=== PATIENT | male | born 1975 | race Caucasian/White ===

== ENCOUNTER 2021-09-09 21:45 | Inpatient (IN) | payer BC, OTHER ==
[~2021-09-09] VITALS: Ht 175.3 cm; Wt 81.0 kg
[~2021-09-09 21:45] MED LIST: CLIN-62 PO; DXCC100CRX PO; HYDR-229 PO; HYDR1CAP2 PO; METH500T35 PO; NAPR-243 PO
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
[2021-09-09 22:08] LABS: BASOPHILS % (AUTO) 0 % (0-10); EOSINOPHILS % (AUTO) 0 % (0-10); HEMATOCRIT 46 % (40-54); HEMOGLOBIN 15.5 g/dL (13.3-17.7); LYMPHOCYTES # (AUTO) 2.4 10^3/uL (1.0-4.0); LYMPHOCYTES % (AUTO) 26 % (12-44); MEAN CORPUSCULAR HEMOGLOBIN 30 pg (25-34); MEAN CORPUSCULAR HGB CONC 34 g/dL (32-36); MEAN CORPUSCULAR VOLUME 89 fL (80-99); MEAN PLATELET VOLUME 9.7 fL (9.0-12.2); MONOCYTES # (AUTO) 0.5 10^3/uL (0.0-1.0); MONOCYTES % (AUTO) 6 % (0-12); NEUTROPHILS # (AUTO) 6.1 10^3/uL (1.8-7.8); NEUTROPHILS % (AUTO) 67 % (42-75); PLATELET COUNT 225 10^3/uL (130-400); WHITE BLOOD COUNT 9.1 10^3/uL (4.3-11.0)
[2021-09-09] MEDS ORDERED: ETOMIDATE IV SOLN 20 MG/10 ML VIAL IV ONE (22:15)
[2021-09-09] MEDS ORDERED: NS IV 500 ML 500 ML IV SCH (22:15)
[2021-09-09] MEDS ORDERED: ONDANSETRON 4 MG/2 ML (SDV) Z0FRAN IVP ONE (22:15)
[2021-09-09] MEDS ORDERED: fentaNYL INJ 100 MCG/2 ML AMP IVP PRN (22:15)
[2021-09-09 22:19] LABS: POTASSIUM 3.8 MMOL/L (3.6-5.0)
[2021-09-09 22:21] LABS: CALCIUM 8.5 MG/DL (8.5-10.1)
--- NOTE | 2021-09-09 22:21 | Diagnostic Imaging Report ---
EXAM: Ankle, left, 3 views INDICATION: Left ankle pain. Fall on ice. COMPARISON: None. FINDINGS: Comminuted fractures of the distal left fibular metaphysis and medial malleolus. There is posterior dislocation of the talus. No radiopaque foreign bodies. IMPRESSION: Fracture and dislocation of the left ankle, as above. Dictated by: Dictated on workstation # [id number]
[2021-09-09 22:23] LABS: BILIRUBIN,TOTAL 0.6 MG/DL (0.1-1.0)
[2021-09-09 22:26] LABS: CREATININE SERUM 0.74 MG/DL (0.60-1.30); INR 0.9 (0.8-1.4); PROTHROMBIN TIME PATIENT 12.6 SEC (12.2-14.7)
--- NOTE | 2021-09-09 22:42 | Diagnostic Imaging Report ---
EXAM: Ankle, left, 2 views. INDICATION: Left ankle fracture. COMPARISON: Left ankle radiographs from earlier today. FINDINGS/ IMPRESSION: Interval reduction of the left talus dislocation. Comminuted fractures of the distal left fibular metaphysis and medial malleolus. Images acquired through splinting material. Dictated by: Dictated on workstation # [id number]
[2021-09-09 23:00] VITALS: BP 138/87
[2021-09-09] MEDS ORDERED: LACTATED RINGERS 1,000 ML IV ONE (23:00)
[2021-09-09] MEDS ORDERED: ACETAMINOPHEN 325 MG TABLET PO PRN (23:15)
[2021-09-09 23:23] LABS: AMPHETAMINE SCREEN, URINE NEGATIVE (NEGATIVE); BARBITURATE SCREEN URINE NEGATIVE (NEGATIVE); BENZODIAZEPINES SCREEN URINE NEGATIVE (NEGATIVE); CANNABINOID SCREEN, URINE NEGATIVE (NEGATIVE); COCAINE SCREEN URINE NEGATIVE (NEGATIVE); METHADONE STAT NEGATIVE (NEGATIVE); METHAMPHETAMINE SCREEN URINE S NEGATIVE (NEGATIVE); OPIATE SCREEN URINE NEGATIVE (NEGATIVE); OXYCODONE STAT NEGATIVE (NEGATIVE); PROPOXYPHENE STAT NEGATIVE (NEGATIVE); TRICYCLIC ANTIDEPRESSANTS SCRE NEGATIVE (NEGATIVE)
[2021-09-10] VITALS (11 sets, daily range): BP systolic 109–135; BP diastolic 66–99
[2021-09-10] MEDS ORDERED: 1/2 NS IV SOLUTION 1,000 ML IV PRN (01:15)
[2021-09-10] MEDS ORDERED: LORazepam 1 MG (ATIVAN) TAB PO PRN (01:15)
[2021-09-10] MEDS ORDERED: ONDANSETRON 4 MG/2 ML (SDV) Z0FRAN IV PRN (01:15)
[2021-09-10] MEDS ORDERED: LORazepam INJ 2 MG/ML (ATIVAN) VIAL IM/IV PRN (01:15)
[2021-09-10] MEDS ORDERED: ONDANSETRON 4 MG (ZOFRAN) ORAL DISSOLVE TAB SL PRN (01:15)
[2021-09-10] MEDS ORDERED: SENNA W/DOCUSATE (SENOKOT S) TABLET PO PRN (01:15)
[2021-09-10] MEDS ORDERED: D5 1/2 NS 1000 ML IV SOLUTION 1,000 ML IV PRN (01:15)
[2021-09-10] MEDS ORDERED: ANTACID SUSP 30 ML UDC (MYLANTA) PO PRN (01:15)
[2021-09-10] MEDS: fentaNYL INJ 100 MCG/2 ML AMP IV PRN ×6 (02:14→23:46)
[2021-09-10] MEDS: LACTATED RINGERS 1,000 ML IV SCH ×4 (02:15→20:45)
[2021-09-10] MEDS: LORazepam INJ 2 MG/ML (ATIVAN) VIAL IV PRN ×3 (03:16→23:46)
[2021-09-10 06:02] LABS: HEMATOCRIT 44 % (40-54); HEMOGLOBIN 15.1 g/dL (13.3-17.7); MEAN CORPUSCULAR HEMOGLOBIN 31 pg (25-34); MEAN CORPUSCULAR HGB CONC 34 g/dL (32-36); MEAN CORPUSCULAR VOLUME 90 fL (80-99); MEAN PLATELET VOLUME 9.8 fL (9.0-12.2); PLATELET COUNT 227 10^3/uL (130-400); WHITE BLOOD COUNT 9.6 10^3/uL (4.3-11.0)
[2021-09-10 06:18] LABS: POTASSIUM 4.1 MMOL/L (3.6-5.0)
[2021-09-10 06:19] LABS: CALCIUM 8.2 MG/DL (8.5-10.1)
[2021-09-10 06:24] LABS: CREATININE SERUM 0.72 MG/DL (0.60-1.30)
[2021-09-10] MEDS ORDERED: SEVOFLURANE (ULTANE) 15 ML INHAL SOLN ONE ×2 (08:45→10:50)
[2021-09-10] MEDS ORDERED: ONDANSETRON 4 MG/2 ML (SDV) Z0FRAN ONE (08:45)
[2021-09-10] MEDS ORDERED: proPOfol 200 MG/20 ML (DIPRIVAN) VIAL IV ONE (08:45)
[2021-09-10] MEDS ORDERED: LIDOCAINE PF 2% 5 ML (XYLOCAINE) VIAL ONE (08:45)
[2021-09-10] MEDS ORDERED: MIDAZOLAM 2 MG/2 ML (VERSED) VIAL ONE (08:45)
[2021-09-10] MEDS ORDERED: fentaNYL INJ 100 MCG/2 ML AMP ONE (08:45)
[2021-09-10] MEDS ORDERED: NEO/POLY/BAC (NEOSPORIN) OINT 15 GM TUBE ONE (08:54)
[2021-09-10] MEDS ORDERED: LIDOCAINE/EPI 1%-1:200,000 (XYLOCAINE) 30 ML VIAL ONE (08:54)
[2021-09-10] MEDS ORDERED: BUPIVACAINE 0.25% 30 ML (SENSORCAINE) VIAL ONE (08:54)
[2021-09-10] MEDS: LACTATED RINGERS 1,000 ML IV PRN ×2 (09:00→09:53)
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
[2021-09-10] MEDS ORDERED: METOCLOPRAMIDE INJ 10 MG/2 ML (REGLAN) ONE (09:19)
[2021-09-10] MEDS ORDERED: PHENYLEPHRINE 100 MCG/ML 10 ML (ANESTHESIA) SYR ONE (09:23)
[2021-09-10] MEDS ORDERED: ceFAZolin INJECTION 2,000 MG ONE (09:44)
[2021-09-10] MEDS ORDERED: ROCURONIUM 10 MG/ML 5 ML SYRINGE IV ONE (10:38)
[2021-09-10] MEDS ORDERED: KETOROLAC 30 MG/ML VIAL ONE (10:54)
[2021-09-10] MEDS ORDERED: ONDANSETRON 4 MG/2 ML (SDV) Z0FRAN IVP PRN (11:30)
[2021-09-10] MEDS ORDERED: MEPERIDINE (DEMEROL) INJ 50 MG/ML IVP ONE (11:30)
[2021-09-10] MEDS ORDERED: HYDROmorphone 2 MG/ML VIAL (DILAUDID) IV ONE (11:30)
[2021-09-10] MEDS ORDERED: SUCCINYLCHOLINE INJ 20 MG/1 ML 10 ML VIAL ONE (11:33)
--- NOTE | 2021-09-10 11:40 | Operative Report - Ortho ---
Operative Report Surgeon (s)/Electronic Assembly (s) Surgeon MELODIE VIGIL MD Electronic Assembly n/a Pre-Operative Diagnosis Trimalleolar fracture left ankle with syndesmosis disruption Post-Operative Diagnosis same Operative Report Date of Procedure: Sep 10, 2021 Name of Procedure Performed: Open reduction internal fixation of trimalleolar fracture left ankle with syndesmosis stabilization Description & Findings The patient was seen in the hospital room and treatment options were discussed. I recommended open reduction internal fixation of his left ankle fracture. After discussing the procedure risk complications, the patient would like to proceed. Patient was brought down to the operating room in his hospital bed. He is placed on the OR table and after administration of general anesthesia a tourniquet was placed on the left thigh and the splint was removed from the left lower leg and ankle. He did have some moderate swelling and bruising but no skin wounds or blistering. He had a good posterior tibial and Dorsalis pedis pulse. His toes were pink and had good capillary refill. The foot and lower leg were then scrubbed prepped and draped in usual sterile manner. The leg was examined with an Esmarch and the tourniquet was elevated to 250 mmHg. An incision was made laterally from the tip of the distal fibula proximally approximately 15 cm. This was taken down through subtenons tissue. Bleeders are cauterized. The soft tissue was elevated off of the distal fibula. The fracture was comminuted and was a sharp oblique fracture. The posterior wall at the fracture site was comminuted. The wound was irrigated as well as the fracture hematoma. The fracture was then able to be reduced and held with a reduction clamp. There is really no cortex posteriorly to place a lag screw. A distal fibular locking plate was then selected 3 holes in the shaft and this was placed on the lateral aspect of the fibula holding the fracture reduced. 2 locking screws were placed distally in the distal fragment and 2 cortical screws were placed in the most proximal shaft screw holes. Images then used to vis ualize the fracture reduction and excellent alignment of the reduction was noted in excellent position of the plate and screws are noted. At this point 4 additional locking screws were placed in the distal fragment and 1 more cortical screw in the shaft. The reduction clamp was removed and the fracture was found to be stable and again the fibula was out the length with posterior comminution at the fracture site. At this point an incision was made medially over the fracture of the medial malleolus. This was taken down through subtenons tissue. Soft tissue was elevated off the fracture site. The fracture hematoma was irrigated. No comminuted or loose fragments were noted. The fracture was reduced without difficulty and held with a reduction clamp. Guide pins were placed through the tip of the medial malleolus across fracture site into the distal tibia. These were then overdrilled. 2-40 mm partially-threaded 4.0 cannulated screws were then inserted over the guide pins holding the fracture in good reduction and good position. Images then used to visualize the ankle and fractures were reduced anatomic. Screws were in good position medially and again the plate and screws were in good position laterally. At this point to syndesmosis screws were placed from lateral to medially through the slot in the midportion of the plate. These were drilled measured and appropriate length screws were inserted with holding the syndesmosis reduced aiming slightly anterior. The syndesmosis was then checked and found to be stable. The ankle was stable. The posterior malleolar fragment which was approximately 2 mm in width was minimally displaced and was at the back edge of the articular surface. It was felt that this was in good position and did not need to be opened and fixed. This point the tourniquet was deflated after 56 minutes. Bleeders are cauterized. Wounds were irrigated. Lateral wou nd was closed in layers of 2-0 and 0 Vicryl and then lizbeth for the skin. 2 oh and lizbeth medially. Wounds were injected with 30 mL of a 50-50 mixture of 0.5% Marcaine and 1% Xylocaine. The wounds are dressed with antibiotic ointment Adaptic and 4 x 4's and wrapped with web roll. A posterior and sugar tong splint was applied to the ankle. These were wrapped with Jamal wraps. Patient was then transferred to recovery room in good condition, he tolerated procedure well. [id number] minutes at 250 mmHg Blood [id number] mL Drainsnone Complicationsnone Specimensnone n/a Anesthesia Type General Estimated Blood Loss 100 mL Packing none. Specimen(s) collected/removed None MELODIE VIGIL MD Sep 10, 2021 11:40
[2021-09-10] MEDS ORDERED: oxyCODONE/APAP 5/325MG (PERCOCET 5) TABLET PO PRN (11:45)
--- NOTE | 2021-09-10 11:45 | Diagnostic Imaging Report ---
Result: History: 46 years-old Male with left ankle fracture Technique: 4 intraoperative fluoroscopic images of the left ankle in the frontal, oblique and lateral projections. Fluoroscopic Time: 38.3 seconds Findings: Intraoperative fluoroscopic images were obtained during internal fixation of the distal fibula fracture in the medial malleolus fracture with trans-syndesmotic screws as well. Alignment is improved. Impression: Fluoroscopic intraoperative images obtained during internal fixation of the medial and lateral malleoli fractures with improved alignment. Dictated by: Dictated on workstation # [id number]
--- NOTE | 2021-09-10 11:48 | Anesthesia-General Post-Op ---
General Patient Condition Mental Status/LOC: Same as Preop Cardiovascular: Satisfactory Nausea/Vomiting: Absent Respiratory: Satisfactory Pain: Controlled Complications: Absent Post Op Complications Complications None Follow Up Care/Instructions Patient Instructions None needed. Anesthesia/Patient Condition Patient Condition Patient is doing well, no complaints, stable vital signs, no apparent adverse anesthesia problems. No complications reported per nursing. D/C home per [facility] [place] [facility] [place] Criteria: RUDY Moreno CRNA Sep 10, 2021 11:48
[2021-09-10] MEDS: ceFAZolin 2 GM IV Premixed 50 ML IV SCH (17:58)
--- NOTE | 2021-09-10 18:17 | History & Physical-Hospitalist ---
History of Present Illness HPI/Chief Complaint George Best is a 46 year old male with no past medical history who presented with ankle pain. 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 He had drank several beers last night. He underwent surgical repair today with orthopedic surgery. Upon my exam, he is resting comfortably in bed. He is not in pain at this time. He denies shortness of breath. He was able to eat without any abdominal pain, nausea, or vomiting. He has been in his normal state of health recently. He does not smoke cigarettes. He reports drinking 6-12 beers daily. He has no history of alcohol withdrawal. He does not use any illicit drugs. Source: patient Exam Limitations: no limitations Date Seen 09/10/21 Time Seen by a Provider: 17:40 Attending Physician Lavinia Bernard MD PCP No,Local Physician Referring Physician Date of Admission Sep 09, 2021 at 22:08 Home Medications & Allergies Home Medications Reviewed patient Home Medication Reconciliation performed by pharmacy medication reconciliations certified technician and/or nursing. Patients Allergies have been reviewed. Allergies Allergies Coded Allergies adhesive (Verified Allergy, Severe, RASH, OOZING, IMPENTIGO, 02/04/13) ADHESIVE SKIN GLUE sulfamethoxazole (Verified Allergy, Mild, HIVES, 01/02/13) trimethoprim (Verified Allergy, Mild, HIVES, 01/02/13) Uncoded Allergies mastisol ( Adverse Reaction, Intermediate, swelling, rash, 02/06/13) Past Rjnzwkl-Xpyisf-Ddnpoq Hx Patient Social History Tobacco Use?: Yes Smoking Status: Former Smoker Smokeless type used: Chew Smokeless Tobacco Frequency: Current Everyday User Use of E-Cig and/or Vaping dev: No Substance use?: No Alcohol Use?: Yes Alcohol type: Beer Alcohol Frequency: Daily Pt feels they are or have been: Yes Immunizations Up To Date First/Initial COVID19 Vaccinat: NONE Second COVID19 Vaccination Jeanmarie: NONE Seasonal Allergies Seasonal Allergies: No Current Status Advance Directives: No Communicates: Verbally Primary Language: Syriac Preferred Spoken Language: Syriac Is interpretation needed?: No Past Medical History Chronic Back Pain, Fractures Adverse Reaction/Blood Tranf: No Family Medical History No Pertinent Family Hx Review of Systems Constitutional: no symptoms reported EENTM: no symptoms reported Respiratory: no symptoms reported Cardiovascular: no symptoms reported Gastrointestinal: no symptoms reported Genitourinary: no symptoms reported Musculoskeletal: no symptoms reported Skin: no symptoms reported Psychiatric/Neurological: No Symptoms Reported Physical Exam Physical Exam Vital Signs Vital Signs - First Documented 09/09/21 21:47 Temp 36.3 Pulse 100 Resp 22 B/P (MAP) 157/98 (117) Pulse Ox 93 O2 Delivery Room Air Capillary Refill : Less Than 3 SecondsLess Than 3 Seconds Height, Weight, BMI Height: '" Weight: lbs. oz. kg; 26.35 BMI Method:Stated General Appearance: No Apparent Distress, WD/WN HEENT: PERRL/EOMI, Pharynx Normal Neck: Normal Inspection, Supple Respiratory: Lungs Clear, Normal Breath Sounds, No Respiratory Distress Cardiovascular: Regular Rate, Rhythm, No Edema, No Murmur Gastrointestinal: Normal Bowel Sounds, Non Tender, Soft Extremity: No Pedal Edema, Other (left ankle wrapped with bandages and elevated) Neurologic/Psychiatric: Alert, Oriented x3, No Motor/Sensory Deficits Skin: Normal Color, Warm/Dry Results Results/Procedures Labs Laboratory Tests 09/09/21 21:55 09/10/21 05:50 Patient resulted labs reviewed. Imaging: Reviewed Imaging Report Assessment/Plan Admission Diagnosis Trimalleolar fracture of left ankle Admission Status: Inpatient Order (span 2 midnights) Reason for Inpatient Admission: Surgical repair Assessment and Plan Trimalleolar fracture of left ankle Ortho consulted s/p ORIF 09/10 Pain regimen Bowel regimen Non-weight bearing LLE PT/OT Incentive spriometry Alcohol dependence with acute intoxication No history of withdrawal No evidence of withdrawal at this time [facility] protocol Diagnosis/Problems Diagnosis/Problems (1) Trimalleolar fracture of left ankle Status: Acute Qualifiers: Encounter type: initial encounter Fracture type: closed Qualified Codes: S82.852A - Displaced trimalleolar fracture of left lower leg, initial encounter for closed fracture (2) Alcohol dependence with intoxication Status: Acute Qualifiers: Complication of substance-induced condition: uncomplicated Qualified Codes: F10.220 - Alcohol dependence with intoxication, uncomplicated LAVINIA BERNARD MD Sep 10, 2021 18:17
[2021-09-10] MEDS ORDERED: ENOXAPARIN 40 MG/0.4 ML (LOVENOX) SYR SC SCH (18:30)
[2021-09-10] MEDS ORDERED: ENOXAPARIN 40 MG/0.4 ML (LOVENOX) SYR ONE (19:26)
[2021-09-11] VITALS: BP 104/70
[2021-09-11] MEDS: ceFAZolin 2 GM IV Premixed 50 ML IV SCH ×2 (01:11→08:36)
[2021-09-11 04:00] VITALS: BP 128/71
[2021-09-11] MEDS: fentaNYL INJ 100 MCG/2 ML AMP IV PRN ×3 (04:12→11:00)
[2021-09-11] MEDS: oxyCODONE/APAP 10/325MG (PERCOCET 10) TABLET PO PRN ×3 (04:16→12:44)
[2021-09-11] MEDS: LACTATED RINGERS 1,000 ML IV SCH (06:12)
[2021-09-11 06:58] LABS: CALCIUM 8.4 MG/DL (8.5-10.1)
[2021-09-11 07:02] LABS: CREATININE SERUM 0.71 MG/DL (0.60-1.30)
[2021-09-11 08:04] VITALS: BP 129/81
[2021-09-11] MEDS ORDERED: ASPIRIN E.C. 325 MG (ECOTRIN) TABLET PO SCH (09:00)
--- NOTE | 2021-09-11 09:19 | Progress Note - Ortho ---
Progress Note Subjective Date of Exam 09/11/21 Chief Complaint POD#1 Open reduction internal fixation trimalleolar fracture left ankle with syndesmosis stabilization. HPI/Events since last exam George is 1 day postop open reduction internal fixation left ankle fracture. He stated he had quite a bit of pain last evening and had difficulty sleeping. He is better this morning as he had a pain pill as well as IV pain medication. He has not yet been up with therapy. Review of Systems Reviewed and no additions or changes Allergies: Coded Allergies: adhesive (Verified Allergy, Severe, RASH, OOZING, IMPENTIGO, 02/04/13) ADHESIVE SKIN GLUE sulfamethoxazole (Verified Allergy, Mild, HIVES, 01/02/13) trimethoprim (Verified Allergy, Mild, HIVES, 01/02/13) Uncoded Allergies: mastisol (Adverse Reaction, Intermediate, swelling, rash, 02/06/13) Home Meds Discontinued Reported Medications Naproxen (Naprosyn) 500 Mg Tablet, 1 EACH PO BID 02/04/13 Doxycycline Hyclate (RX-VIBRAMYCIN TABLET) 100 Mg Tab, 100 MG PO BID 02/04/13 Hydrocodone Bit/Acetaminophen (Hydrocodone-Apap 5-500 Cap) 1 Each Capsule, 1 EACH PO Q4HR PRN 01/02/13 Methocarbamol (Robaxin) 500 Mg Tablet, 500 MG PO TID 01/02/13 Discontinued Scripts Clindamycin Hcl (Cleocin Cap) 150 Mg Cap, 3 EACH PO Q8H for 7 Days, CAP 0 Refills Prov:RAULITO FALL MD 02/04/13 Objective Exam Constitutional: [] HEENT: [] Neck: [] Cardiovascular: [] Respiratory: [] Gastrointestinal: [] Genitourinary: [] Skin: [] Back/Spine: [] Extremities: [He can move his toes without pain. He has good cap refill. Normal sensation in all of his toes. No knee pain and minimal hip pain.He states he has had pain like this in his hip off and on and she usually positional] Neurologic: [] Psychiatric: [] Hematologic/lymphatic/immunologic: [] Vital Signs Vital Signs Date Time Temp Pulse Resp B/P (MAP) Pulse Ox O2 Delivery O2 Flow Rate FiO2 09/11/21 08:04 37.0 82 20 129/81 (97) 95 Room Air 09/11/21 07:00 95 09/11/21 04:00 36.2 90 18 128/71 (90) 97 Room Air 09/11/21 01:00 89 09/11/21 00:00 36.8 112 20 104/70 (81) 96 Room Air 09/10/21 20:35 Room Air 09/10/21 19:31 37.1 124 22 119/82 (94) 91 Room Air 09/10/21 19:00 128 09/10/21 15:30 37.1 125 20 125/66 (85) 93 Room Air 09/10/21 14:53 Room Air 0.00 09/10/21 12:20 36.2 18 114/85 (95) 95 OxyMask 4 09/10/21 12:20 OxyMask 4 09/10/21 12:20 37.0 104 16 122/78 (93) 94 OxyMask 4.00 09/10/21 12:10 18 109/88 (95) 93 OxyMask 4 09/10/21 12:10 OxyMask 4 09/10/21 12:04 OxyMask 4 09/10/21 12:00 18 110/89 (96) 93 OxyMask 4 09/10/21 11:59 OxyMask 4 09/10/21 11:54 OxyMask 2 09/10/21 11:50 18 123/83 (96) 97 OxyMask 3 09/10/21 11:46 OxyMask 3 09/10/21 11:43 OxyMask 6 09/10/21 11:40 18 135/99 (111) 98 OxyMask 6 09/10/21 11:30 18 123/86 (98) 97 OxyMask 6 09/10/21 11:30 OxyMask 6 09/10/21 11:19 36.4 12 114/97 (103) 99 OxyMask 6 09/10/21 11:19 OxyMask 6 I & O 09/11/21 07:00 Intake Total 3580 ml Output Total 1875 ml Balance 1705 ml Lab Results Laboratory Tests 09/11/21 06:15: Hemoglobin 13.0L, Hematocrit 39L, Sodium Level 136, Potassium Level 4.0, Chloride Level 100, Carbon Dioxide Level 27, Anion Gap 9, Blood Urea Nitrogen 8, Creatinine 0.71, Estimat Glomerular Filtration Rate 113, BUN/Creatinine Ratio 11, Glucose Level 129H, Calcium Level 8.4L Microbiology 09/09/21 MRSA Screen - Final, Complete MRSA not isolated Assessment and Plan Assessment Doing well first day postop other than some difficulty with pain control Problem List Unchanged Plan We will see how he does getting up with therapy crutch ambulation nonweightbearing on the left. We talked about pain management and he needs to stay ahead of the pain. He states he tried to go as long as he could without taking anything. So he will take oral pain medication around the clock and use IV pain medication for breakthrough pain. If he is doing well later on today he certainly can go home and then I will see him back in the office on Sunday. If he continues with some difficulty controlling his pain and getting up and ambulating then will plan on having him stay till tomorrow. Final Diagonsis Trimalleolar fracture left ankle with syndesmosis disruption Level of the visit: Level 3 MELODIE VIGIL MD Sep 11, 2021 09:19
[2021-09-11] MEDS ORDERED: OXYC1TAB12 PO ×2 (10:53)
--- NOTE | 2021-09-11 10:58 | Physical Therapy Ortho Eval ---
PT Orthopedic Evaluation Type of Surgery left ankle fracture/ s/p left ankle ORIF Prior Level of Function Current Living Status: Spouse Locomotion (Upon Admit): Independent Subjective Subjective Patient agrees to PT. Reports he is "shaky". Family present. Entry Into Home: Stairs With Railing Steps Into Home: 2 Other Obstacles: Patient performed 2 steps with CGA Motor Control Motor Control: Motor Control WNL ROM ROM: WFL, except focal deficit Strength Strength: WFL Transfer SCALE: Activities may be completed with or without assistive devices. 6-Axhlhfknxx-eehfvkz completes the activity by him/herself with no assistance from a helper. 5-Set-up or Clean-up Assistance-helper sets up or cleans up; patient completes activity. [place] assists only prior to or following the activity. 4-Supervision or Touching Assistance-helper provides verbal cues and/or touching/steadying and/or contact guard assistance as patient completes activity. Assistance may be provided throughout the activity or intermittently. 3-Partial/Moderate Assistance-helper does LESS THAN HALF the effort. [place] lifts, holds or supports trunk or limbs, but provides less than half the effort. 2-Substantial/Maximal Assistance-helper does MORE THAN HALF the effort. [place] lifts or holds trunk or limbs and provides more than half the effort. 9-Jiwhvpavc-wwncse does ALL the effort. Patient does none of the effort to complete the activity. Or, the assistance of 2 or more helpers is required for the patient to complete the activity. If activity was not attempted, code reason: 7-Patient Refused. 9-Not Applicable-not attempted and the patient did not perform the activity before the current illness, exacerbation or injury. 10-Not Attempted due to Environmental Limitations-(lack of equipment, weather restraints, etc.). 88-Not Attempted due to Medical Conditions or Safety Concerns. Transfers (B, C, W/C) (QC): 4 (CGA) Gait Gait Assistive Device: Crutches Right Lower Extremity: Right Weight Bearing Status RLE: Full Weight Bearing Left Lower Extremity: Left Weight Bearing Status LLE: Non Weight Bearing Gait (QC): 4 (CGA) Distance (QC): 3=150 ft Distance: 150' x 1/50' x 1 Gait Level of Assist: 4 Treatment Rendered Treatment: Gait Train, Step Train, Reviewed Precautions, Caregiver Instruction PT to send gait belt home for patient safety with family training on use performed. Assessment/Goals Goal Time Frame: 1 Visit Safe Ambulation: Yes Plan Treatment Plan: Discharge PT/Family Agrees to Plan: Yes Time Time In: 1033 Time Out: 1053 Total Billed Treatment Time: 20 Billed Treatment Time 1 [facility] 20 min LION MONTOYA PT Sep 11, 2021 10:58
[2021-09-11 11:32] VITALS: BP 134/83
[2021-09-11] MEDS ORDERED: ASPI325T32 PO ×2 (12:59)
--- NOTE | 2021-09-11 14:08 | Discharge Summary ---
Discharge Summary Hospital Course Problems/Dx: (1) Trimalleolar fracture of left ankle Status: Acute Qualifiers: Qualified Codes: S82.852A - Displaced trimalleolar fracture of left lower leg, initial encounter for closed fracture (2) Alcohol dependence with intoxication Status: Acute Qualifiers: Qualified Codes: F10.220 - Alcohol dependence with intoxication, uncomplicated Hospital Course Date of Admission: Sep 09, 2021 at 22:08 Admission Diagnosis : Trimalleolar fracture of left ankle Family Physician/Provider: Tracey,Local Physician Date of Discharge: 09/11/21 Discharge Diagnosis: Trimalleolar fracture of left ankle Hospital Course: George Best is a 46 year old male who presented after twisting his ankle and was admitted with trimalleolar fracture of his left ankle. Orthopedic surgery was consulted and performed open reduction internal fixation of trimalleolar fracture with syndesmosis stabilization. His course was complicated by acute alcohol intoxication and alcohol dependence. He was monitored but had no significnat alcohol withdrawal symptoms. He was given an order for crutches. He was given a work note. He was given prescriptions for aspirin and Percocet. He should follow up with Dr. Pitts on Sunday. He was discharged home in stable condition. Labs and Pending Lab Test: Laboratory Tests 09/11/21 06:15: Hemoglobin 13.0L, Hematocrit 39L, Sodium Level 136, Potassium Level 4.0, Chloride Level 100, Carbon Dioxide Level 27, Anion Gap 9, Blood Urea Nitrogen 8, Creatinine 0.71, Estimat Glomerular Filtration Rate 113, BUN/Creatinine Ratio 11, Glucose Level 129H, Calcium Level 8.4L Microbiology 09/09/21 MRSA Screen - Final, Complete MRSA not isolated Home Meds Active Aspirin EC (Aspirin) 325 Mg Tablet. 325 Mg PO DAILY daily for 6 weeks Percocet 10-325 mg Tablet (Oxycodone HCl/Acetaminophen) 1 Each Tablet 1 Tab PO Q4H PRN 7 Days Assessment/Pt Instructions Take medications as prescribed. Follow up with your PCP. Return wirh worsening pain or if you feel like you are getting worse. Discharge Planning: <30 minutes discharge planning Discharge Instructions Discharge Diet: No Restrictions Consultations Orthopedic surgery Discharge Physical Examination Vital Signs Vital Signs Date Time Temp Pulse Resp B/P (MAP) Pulse Ox O2 Delivery O2 Flow Rate FiO2 09/11/21 11:32 36.7 91 18 134/83 (100) 93 Room Air 09/10/21 14:53 0.00 General Appearance: No Apparent Distress, WD/WN Respiratory: Lungs Clear, No Respiratory Distress Cardiovascular: Regular Rate, Rhythm, No Murmur Gastrointestinal: Normal Bowel Sounds, Soft Extremity: No Pedal Edema, Other (left ankle bandage in place) Neurologic/Psychiatric: Alert, No Motor/Sensory Deficits Allergies: Coded Allergies: adhesive (Verified Allergy, Severe, RASH, OOZING, IMPENTIGO, 02/04/13) ADHESIVE SKIN GLUE sulfamethoxazole (Verified Allergy, Mild, HIVES, 01/02/13) trimethoprim (Verified Allergy, Mild, HIVES, 01/02/13) Uncoded Allergies: mastisol (Adverse Reaction, Intermediate, swelling, rash, 02/06/13) Discharge Summary Date of Admission Sep 09, 2021 at 22:08 Date of Discharge Sep 11, 2021 at 13:15 Discharge Date: Sep 11, 2021 Discharge Time: 13:15 Admission Diagnosis Trimalleolar fracture of left ankle Consults/Procedures Consulations Orthopedic surgery Procedures ORIF Discharge Diagnosis Trimalleolar fracture of left ankle Alcohol dependence with acute intoxication (1) Trimalleolar fracture of left ankle Status: Acute Qualifiers: Qualified Codes: S82.852A - Displaced trimalleolar fracture of left lower leg, initial encounter for closed fracture (2) Alcohol dependence with intoxication Status: Acute Qualifiers: Qualified Codes: F10.220 - Alcohol dependence with intoxication, uncomplicated CORIE BERNARD MD Sep 11, 2021 14:06
--- NOTE | 2021-09-12 15:16 | Physician Query Clarification ---
PQ-Intro New Diagnosis Admission/Discharge Admission Date: Sep 09, 2021 at 22:08 Discharge Date: Sep 11, 2021 at 13:15 Dr. Bernard, The medical record reflects the following clinical scenario: History/Risk Factors: Lt trimalleolar fx, alcoholism w/intoxication Clinical Findings: Sodium 130 Treatment: IV Sodium chloride Question: What condition best reflects the above clinical scenario? Please document a response in the Progress Noter or Discharge Summary. 1. Hyponatremia 2. Hyponatremia not clinically significant 3. Other, with explanation of the clinical findings. 4. Clinically undetermined, no explanation for the clinical findings. PHYSICIAN RESPONSE What condition reflects above: 1 Please remember a lack of response to the above will prompt a phone page by [facility] staff. In responding to this query, please exercise your independent professional judgment. The purpose of this communication is to more accurately reflect the complexity of your patients condition. The fact that a question is asked does not imply that any particular answer is desired or expected. Thank you for your timely response to this clarification. Requestors name: Tavia THIS PHYSICIAN QUERY FORM IS A PERMANENT PART OF THE MEDICAL RECORD TAVIA FRY Sep 12, 2021 15:16 CORIE BERNARD MD Sep 14, 2021 11:34
== END 2021-09-11 13:15 | disposition home or self-care (01) | DRG 493 ==
LOC: EDUNIT# 21:45 → ER 21:47 → 4TH 22:08
PROVIDERS: ADMIT Internal Medicine; ATTEND Internal Medicine
PROC: 0QSH04Z Reposition Left Tibia with Internal Fixation Device, Open Approach (ICD-10-PCS; 2021-09-10)
PROC: 0QSK04Z Reposition Left Fibula with Internal Fixation Device, Open Approach (ICD-10-PCS; 2021-09-10)
PROC: 0SSG04Z Reposition Left Ankle Joint with Internal Fixation Device, Open Approach (ICD-10-PCS; principal; 2021-09-10 09:09)
DX: S82.852A Displaced trimalleolar fracture of left lower leg, initial encounter for closed fracture (principal); E87.1 Hypo-osmolality and hyponatremia; F10.229 Alcohol dependence with intoxication, unspecified; Y90.8 Blood alcohol level of 240 mg/100 ml or more; Z88.1 Allergy status to other antibiotic agents; Z88.2 Allergy status to sulfonamides; Z91.048 Other nonmedicinal substance allergy status; Z87.891 Personal history of nicotine dependence; W01.0XXA Fall on same level from slipping, tripping and stumbling without subsequent striking against object, initial encounter
CPT/HCPCS: 29515; 36415; 73600; 73610; 76000; 80048; 80053; 80306; 80320; 85014; 85018; 85025; 85027; 85610; 85730; 87081; 93041; 94664; 96361; 96374; 96375; G0378

== ENCOUNTER → 2021-09-14 | Outpatient (CLI) | payer BC ==
[~2021-09-14] MED LIST changes: +ASPI325T32 PO; +OXYC1TAB12 PO
== END ==
LOC: ORTHO 10:30
PROVIDERS: ATTEND Orthopaedic Surgery
DX: S82.852A Displaced trimalleolar fracture of left lower leg, initial encounter for closed fracture (principal); X58.XXXA Exposure to other specified factors, initial encounter
CPT/HCPCS: 29405

== ENCOUNTER → 2021-09-26 | Outpatient (CLI) | payer BC ==
--- NOTE | 2021-09-26 11:39 | Diagnostic Imaging Report ---
EXAMINATION: Left ankle radiographs, 3 views. COMPARISON: Left ankle radiographs September 09, 2021. HISTORY: 46-year-old male, history of left ankle fracture. Followup status post surgery. FINDINGS: There is sideplate and screw fixation hardware along the distal fibula including syndesmotic screws. The hardware appears intact. There is no abnormal lucency surrounding the fixation screws. There is a comminuted fracture of the distal fibular diaphysis centered above the level of the tibial plafond. There are persistent visible fracture lines. There are two lag screws present in the medial malleolus. There is an oblique essentially nondisplaced fracture of the base of the medial malleolus. There is a mildly displaced fracture of the posterior malleolus with persistent visible fracture line. Overall fracture alignment is substantially improved since September 09, 2021. The alignment of the ankle mortise is grossly unremarkable. IMPRESSION: 1. Intact sideplate and screw fixation hardware at the level of the distal fibula including syndesmotic screws as well as intact medial malleolar fixation screws. No identified hardware complication. 2. Substantial interval improved alignment of the previously noted fractures of the distal fibula, medial malleolus, and posterior malleolus. Dictated by: Dictated on workstation # [id number]
== END ==
LOC: ORTHO 09:40
PROVIDERS: ATTEND Orthopaedic Surgery
DX: S82.852D Displaced trimalleolar fracture of left lower leg, subsequent encounter for closed fracture with routine healing (principal); X58.XXXD Exposure to other specified factors, subsequent encounter
CPT/HCPCS: 73610

== ENCOUNTER → 2021-10-10 | Outpatient (CLI) | payer BC ==
--- NOTE | 2021-10-10 09:40 | Diagnostic Imaging Report ---
INDICATION: Left ankle fracture, follow-up. TIME OF EXAM: 9:17 AM Correlation is made with prior radiograph from 09/26/2021. FINDINGS: 3 views left ankle demonstrate lateral plate and numerous screws transfixing the obliquely oriented distal fibular fracture. Fracture line remains visible but alignment is anatomic. There are 2 partially threaded screws transfixing the medial malleolus. There are 2 fully threaded syndesmotic screws. Transversely oriented medial malleolar fracture remains visible. Alignment is anatomic. Ankle mortise is well maintained. Talar dome is smooth. IMPRESSION: Stable postop and post traumatic changes left ankle when compared with exam from 2 weeks earlier. The fracture lines of the distal fibula and medial malleolus remain visible but alignment is anatomic. Dictated by: Dictated on workstation # [id number]
== END ==
LOC: ORTHO 09:13
PROVIDERS: ATTEND Orthopaedic Surgery
DX: S82.852D Displaced trimalleolar fracture of left lower leg, subsequent encounter for closed fracture with routine healing (principal); X58.XXXD Exposure to other specified factors, subsequent encounter
CPT/HCPCS: 73610

== ENCOUNTER → 2021-10-12 | Outpatient (CLI) | payer BC | LOC: ORTHO 13:13 | PROVIDERS: ATTEND Orthopaedic Surgery | DX: S82.852D Displaced trimalleolar fracture of left lower leg, subsequent encounter for closed fracture with routine healing (principal); X58.XXXD Exposure to other specified factors, subsequent encounter ==

== ENCOUNTER → 2021-10-12 | Outpatient (CLI) | payer BC ==
[2021-10-12 12:47] LABS: BASOPHILS # (AUTO) 0.1 10^3/uL (0.0-0.1); BASOPHILS % (AUTO) 1 % (0-10); EOSINOPHILS # (AUTO) 0.1 10^3/uL (0.0-0.3); EOSINOPHILS % (AUTO) 2 % (0-10); HEMATOCRIT 48 % (40-54); HEMOGLOBIN 15.7 g/dL (13.3-17.7); LYMPHOCYTES # (AUTO) 1.5 10^3/uL (1.0-4.0); LYMPHOCYTES % (AUTO) 22 % (12-44); MEAN CORPUSCULAR HEMOGLOBIN 30 pg (25-34); MEAN CORPUSCULAR HGB CONC 33 g/dL (32-36); MEAN CORPUSCULAR VOLUME 92 fL (80-99); MEAN PLATELET VOLUME 9.4 fL (9.0-12.2); MONOCYTES # (AUTO) 0.7 10^3/uL (0.0-1.0); MONOCYTES % (AUTO) 10 % (0-12); NEUTROPHILS # (AUTO) 4.3 10^3/uL (1.8-7.8); NEUTROPHILS % (AUTO) 65 % (42-75); PLATELET COUNT 264 10^3/uL (130-400); WHITE BLOOD COUNT 6.6 10^3/uL (4.3-11.0)
[2021-10-12 12:56] LABS: POTASSIUM 4.2 MMOL/L (3.6-5.0)
[2021-10-12 12:57] LABS: CALCIUM 9.7 MG/DL (8.5-10.1)
[2021-10-12 13:02] LABS: CREATININE SERUM 0.83 MG/DL (0.60-1.30)
[2021-10-12 13:10] LABS: ERYTHROCYTE SEDIMENTATION RATE 5 MM/HR (0-15)
== END ==
LOC: LAB 12:15
PROVIDERS: ATTEND Orthopaedic Surgery
DX: S82.852D Displaced trimalleolar fracture of left lower leg, subsequent encounter for closed fracture with routine healing (principal); X58.XXXD Exposure to other specified factors, subsequent encounter
CPT/HCPCS: 36415; 80048; 85025; 85652; 86141

== ENCOUNTER → 2021-10-26 | Outpatient (CLI) | payer BC ==
--- NOTE | 2021-10-26 11:02 | Diagnostic Imaging Report ---
INDICATION: Followup left ankle fracture with ORIF. COMPARISON: 10/10/2021. EXAMINATION: Left ankle, 3 views. FINDINGS: The hardware remains intact. There has been some bony callus formation develop along the medial and lateral malleolar fractures since the previous exam. The ankle mortise is in good alignment. The joint space is well-maintained. Soft tissue swelling remains present both medially and laterally. IMPRESSION: Stable appearing ORIF with early bony callus formation developing along the fracture lines. Dictated by: Dictated on workstation # [id number]
== END ==
LOC: ORTHO 09:02
PROVIDERS: ATTEND Orthopaedic Surgery
DX: S82.852D Displaced trimalleolar fracture of left lower leg, subsequent encounter for closed fracture with routine healing (principal); X58.XXXD Exposure to other specified factors, subsequent encounter
CPT/HCPCS: 73610

== ENCOUNTER → 2021-11-09 | Outpatient (CLI) | payer BC ==
--- NOTE | 2021-11-09 09:35 | Diagnostic Imaging Report ---
INDICATION: Postop ankle surgery. TIME OF EXAM: 9:01 AM. COMPARISON: Correlation is made with the prior radiographs from 10/26/2021. FINDINGS: A lateral plate and numerous screws transfix the distal fibula. There are two partially threaded screw transfixing the medial malleolus. There are two fully threaded syndesmotic screws. The hardware is intact. No loosening is seen. The fracture through the distal fibula does remain partially visible. The posterior malleolus fracture is again noted. Overall alignment is anatomic. Ankle mortise is well maintained. Talar dome is smooth. IMPRESSION: Stable postop changes of the left ankle since the examination 2 weeks earlier. Dictated by: Dictated on workstation # [id number]
== END ==
LOC: ORTHO 08:53
PROVIDERS: ATTEND Orthopaedic Surgery
DX: S82.852D Displaced trimalleolar fracture of left lower leg, subsequent encounter for closed fracture with routine healing (principal); X58.XXXD Exposure to other specified factors, subsequent encounter
CPT/HCPCS: 73610

== ENCOUNTER → 2021-11-30 | Outpatient (CLI) | payer BC ==
--- NOTE | 2021-11-30 09:29 | Diagnostic Imaging Report ---
EXAMINATION: Left ankle radiographs, 3 views. COMPARISON: Left ankle radiographs November 09, 2021. HISTORY: 46-year-old male, followup ankle fracture. FINDINGS: There is sideplate and screw fixation hardware along the distal fibula with syndesmotic screws. There are two medial malleolar screws also present. The hardware appears intact. There is a fracture deformity of the posterior malleolus. The alignment of the ankle mortise is unremarkable. There is no identified large tibiotalar joint effusion. There is a very small calcaneal heel spur. There is interval partial bony callus bridging of the prior fibular fracture. There is no identified residual medial malleolar fracture line. IMPRESSION: 1. Intact sideplate and screw fixation hardware at the level of the distal fibula including syndesmotic screws as well as intact medial malleolar screws. 2. Mild interval partial bony callus bridging at site of distal fibular fracture with no visualized medial malleolar fracture line and redemonstrated and unchanged appearance of the displaced fracture deformity of the posterior malleolus. Dictated by: Dictated on workstation # [id number]
== END ==
LOC: ORTHO 08:27
PROVIDERS: ATTEND Orthopaedic Surgery
DX: S82.852D Displaced trimalleolar fracture of left lower leg, subsequent encounter for closed fracture with routine healing (principal); X58.XXXD Exposure to other specified factors, subsequent encounter
CPT/HCPCS: 73610

== ENCOUNTER → 2021-12-21 | Outpatient (CLI) | payer BC | LOC: ORTHO 09:32 | PROVIDERS: ATTEND Orthopaedic Surgery | DX: S82.852D Displaced trimalleolar fracture of left lower leg, subsequent encounter for closed fracture with routine healing (principal); X58.XXXD Exposure to other specified factors, subsequent encounter ==

== ENCOUNTER → 2022-01-04 | Outpatient (CLI) | payer BC ==
--- NOTE | 2022-01-04 11:04 | Diagnostic Imaging Report ---
Indication: Follow-up of ORIF of trimalleolar fracture. Comparison 11/30/2021 exam. FINDINGS: The reconstruction plate and bone screws within the fibular are unchanged. Syndesmotic screws remain intact without evidence of loosening. Cannulated screws through the medial malleolus remain unchanged. There has been moderate amount of bony bridging callus developed throughout the trimalleolar fractures. Alignment remains good. Joint spaces well-maintained. Talus shows smooth surfaces. IMPRESSION: Expected healing of a trimalleolar fracture with good anatomic alignment. No hardware complications have developed. Dictated by: Dictated on workstation # [id number]
== END ==
LOC: ORTHO 10:02
PROVIDERS: ATTEND Orthopaedic Surgery
DX: S82.852D Displaced trimalleolar fracture of left lower leg, subsequent encounter for closed fracture with routine healing (principal); X58.XXXD Exposure to other specified factors, subsequent encounter
CPT/HCPCS: 73610